=== PATIENT | female | born 1940 | race Caucasian/White ===

== ENCOUNTER → 2017-01-22 | Outpatient (CLI) | payer MEDICARE ==
[~2017-01-22] MED LIST: ACET-1757 PO; ALBU8.5H5 INH; CALC-260 PO; CITA20TA5 PO; CYCL1DRO EACHEYE; EPIN5DRO10 EACHEYE; FISH400C3 PO; FOLI1TAB5 PO; GLUC-32 PO; GLUC1500 PO; KRIL500C PO; LACT1CAP35 PO; LACT1CAP37 PO; LISI5TAB7 PO; LORA10TA62 PO; MAGN100T6 PO; MERC50TA17 PO; MESA400C PO; METH500C3 PO; METO25TA35 PO; OMEP40CA6 PO; PRED5TAB PO; RED600TA PO; SULF500T36 PO; TOPI50TA8 PO; VANC125C11 PO; VITAMIN B 12 PO
[2017-01-22 12:36] LABS: HEMATOCRIT 41.4 % (34.6-47.8); HEMOGLOBIN 13.5 g/dL (11.7-16.4)
[2017-01-22 12:53] LABS: ASPARTATE AMINO TRANSFERASE 20 U/L (15-37); BLOOD UREA NITROGEN 22 mg/dL (7-18)
== END | disposition home or self-care (01) ==
LOC: STAR 11:53
PROVIDERS: ATTEND Surgery
DX: Z01.818 Encounter for other preprocedural examination (principal)
CPT/HCPCS: 36415; 80053; 85025; 93005

== ENCOUNTER 2017-02-05 06:15 | Inpatient (IN) | payer MEDICARE ==
[~2017-02-05] VITALS: Ht 160 cm; Wt 67.0 kg
[2017-02-05] MEDS ORDERED: BUPIVACAINE/PF 0.5% ONE (07:02)
[2017-02-05 07:03] VITALS: BP 120/79
[2017-02-05] MEDS ORDERED: LACTATED RINGERS 1,000 ML IV SCH (07:09)
[2017-02-05] MEDS ORDERED: cloniDINE/PF 100 MCG/ML, 10 ML ONE (07:18)
[2017-02-05] MEDS ORDERED: LIDOCAINE 1%, 2ML SQ PRN (07:30)
[2017-02-05] MEDS ORDERED: GLYCOPYRROLATE 0.2MG/1ML, 5ML ONE (07:59)
[2017-02-05] MEDS ORDERED: ROCURONIUM 10 MG/ML ONE (07:59)
[2017-02-05] MEDS ORDERED: NEOSTIGMINE 1 MG/ML, 10ML ONE (07:59)
[2017-02-05] MEDS ORDERED: SUCCINYLCHOLINE 20 MG/ML, 10ML ONE (07:59)
[2017-02-05] MEDS ORDERED: PHENYLEPHRINE 10 MG/ML ONE (07:59)
[2017-02-05] MEDS ORDERED: PROPOFOL 10 MG/ML, 20ML ONE (07:59)
[2017-02-05] MEDS ORDERED: DEXAMETHASONE 4 MG/ML, 1ML ONE (07:59)
[2017-02-05] MEDS ORDERED: CEFOTETAN PMX 2GM/50ML 50 ML IVPB ONE (07:59)
[2017-02-05] MEDS ORDERED: ONDANSETRON 2MG/ML, 2ML ONE ×2 (07:59→09:22)
[2017-02-05] MEDS ORDERED: MIDAZOLAM 1 MG/ML, 2ML IV PRN (08:30)
[2017-02-05] MEDS ORDERED: hydrALAzine 20 MG/ML, 1ML IV PRN (08:30)
[2017-02-05] MEDS ORDERED: LABETALOL 5MG/ML, 20ML IV PRN (08:30)
[2017-02-05] MEDS ORDERED: ACETAMINOPHEN 325 MG TABLET PO PRN (08:30)
[2017-02-05] MEDS ORDERED: ONDANSETRON 2MG/ML, 2ML IVPush PRN (08:30)
[2017-02-05] MEDS ORDERED: OXYcodone 5 MG/5 ML ORAL.SOL UDC PO PRN (08:30)
[2017-02-05] MEDS ORDERED: PROMETHAZINE 25 MG/ML, 1ML IV PRN (08:30)
[2017-02-05] MEDS ORDERED: OXYcodone 5 MG/5 ML ORAL.SOL UDC ONE (09:18)
[2017-02-05] MEDS ORDERED: FENTANYL PF 100 MCG/2ML ONE (09:18)
[2017-02-05] MEDS: FENTANYL PF 100 MCG/2ML IV PRN ×2 (09:21→09:30)
[2017-02-05] MEDS ORDERED: HYDROmorphone 1 MG/ML, 1ML ONE (09:38)
[2017-02-05] MEDS: HYDROmorphone 1 MG/ML, 1ML IV PRN ×2 (09:39→10:00)
[2017-02-05] MEDS ORDERED: LORazepam 2 MG/ML, 1ML IV PRN (11:30)
[2017-02-05] MEDS ORDERED: DIPHENHYDRAMINE 50 MG/ML, 1ML IV PRN (11:30)
[2017-02-05] MEDS ORDERED: ONDANSETRON 2MG/ML, 2ML IV PRN (11:30)
[2017-02-05] MEDS ORDERED: LORazepam 1MG TABLET PO PRN (11:30)
[2017-02-05] MEDS ORDERED: HYDROmorphone 1 MG/ML, 1ML IV PRN (11:30)
[2017-02-05] MEDS ORDERED: DIPHENHYDRAMINE 25 MG CAPSULE PO PRN (11:30)
[2017-02-05] MEDS: POTASSIUM CHLORIDE 20 MEQ in D5%-0.45% NACL 1,000 ML IV SCH (11:37)
[2017-02-05] MEDS: ACETAMINOPHEN 500 MG TABLET PO SCH ×3 (12:33→23:25)
[2017-02-05 14:08] VITALS: BP 106/58
[2017-02-05] MEDS: OXYcodone 5 MG/5 ML ORAL.SOL UDC PO PRN ×3 (14:33→23:20)
[2017-02-05] MEDS: IBUPROFEN 600 MG TABLET PO SCH ×2 (15:58→20:55)
[2017-02-05 18:36] VITALS: BP 114/71
[2017-02-05] MEDS: RESTASIS OPTH OP SCH (20:43)
[2017-02-05] MEDS: EPINASTINE OP SCH (20:43)
[2017-02-05] MEDS: SULFASALAZINE 500 MG TABLET PO SCH (21:28)
[2017-02-05 23:14] VITALS: BP 119/72
[2017-02-06 03:46] VITALS: BP 149/72
[2017-02-06 03:47] VITALS: BP 120/70
[2017-02-06 05:08] LABS: HEMATOCRIT 34.5 % (34.6-47.8); HEMOGLOBIN 11.5 g/dL (11.7-16.4); WHITE BLOOD COUNT 8.3 x10^3/uL (3.4-10)
[2017-02-06 05:17] LABS: BLOOD UREA NITROGEN 12 mg/dL (7-18)
[2017-02-06] MEDS ORDERED: FLU VACC QS2017-18 (36MOS+) UP/PF 0.5 ML IM-VACC ONE (06:00)
[2017-02-06] MEDS ORDERED: ENOXAPARIN 40 MG/0.4 ML SQ SCH (06:00)
[2017-02-06] MEDS: ENOXAPARIN 40 MG/0.4 ML SQ SCH (06:07)
[2017-02-06] MEDS: ACETAMINOPHEN 500 MG TABLET PO SCH ×3 (06:07→17:31)
[2017-02-06 07:12] VITALS: BP 109/71
[2017-02-06] MEDS ORDERED: OMEPRAZOLE 20 MG CAPSULE.DR PO SCH (07:30)
[2017-02-06] MEDS: METOCLOPRAMIDE 5 MG/ML, 2ML IVPush SCH ×3 (08:21→20:06)
[2017-02-06] MEDS: EPINASTINE OP SCH ×2 (08:22→20:07)
[2017-02-06] MEDS: OMEPRAZOLE 20 MG CAPSULE.DR PO SCH (08:22)
[2017-02-06] MEDS: RESTASIS OPTH OP SCH ×2 (08:22→20:07)
[2017-02-06] MEDS: POTASSIUM CHLORIDE 20 MEQ in D5%-0.45% NACL 1,000 ML IV SCH (08:22)
[2017-02-06] MEDS: CITALOPRAM 10 MG TABLET PO SCH (08:24)
[2017-02-06] MEDS: LORATADINE 10 MG TABLET PO SCH (08:24)
[2017-02-06] MEDS: SULFASALAZINE 500 MG TABLET PO SCH ×2 (08:24→20:06)
[2017-02-06] MEDS: METOPROLOL TARTRATE 25 MG TABLET PO SCH (08:25)
[2017-02-06] MEDS: IBUPROFEN 600 MG TABLET PO SCH ×3 (08:26→20:06)
[2017-02-06] MEDS: OXYcodone 5 MG/5 ML ORAL.SOL UDC PO PRN ×3 (11:54→22:17)
[2017-02-06 13:57] VITALS: BP 85/51
[2017-02-06 18:33] VITALS: BP 96/65
[2017-02-07] MEDS: ACETAMINOPHEN 500 MG TABLET PO SCH ×4 (00:12→19:30)
[2017-02-07 00:27] VITALS: BP 100/65
[2017-02-07] MEDS: METOCLOPRAMIDE 5 MG/ML, 2ML IVPush SCH ×3 (01:50→13:30)
[2017-02-07] MEDS: POTASSIUM CHLORIDE 20 MEQ in D5%-0.45% NACL 1,000 ML IV SCH (03:54)
[2017-02-07 05:18] LABS: HEMATOCRIT 30.8 % (34.6-47.8); HEMOGLOBIN 10.4 g/dL (11.7-16.4); WHITE BLOOD COUNT 7.4 x10^3/uL (3.4-10)
[2017-02-07 05:25] LABS: BLOOD UREA NITROGEN 19 mg/dL (7-18)
[2017-02-07] MEDS: ENOXAPARIN 40 MG/0.4 ML SQ SCH (06:37)
[2017-02-07 07:05] VITALS: BP 94/54
[2017-02-07] MEDS: EPINASTINE OP SCH ×2 (09:00→21:00)
[2017-02-07] MEDS: RESTASIS OPTH OP SCH ×2 (09:00→21:00)
[2017-02-07] MEDS: METOPROLOL TARTRATE 25 MG TABLET PO SCH (09:00)
[2017-02-07] MEDS ORDERED: SODIUM CHLORIDE 0.9% 500 ML IV SCH (10:00)
[2017-02-07] MEDS: CITALOPRAM 10 MG TABLET PO SCH (10:51)
[2017-02-07] MEDS: LORATADINE 10 MG TABLET PO SCH (10:51)
[2017-02-07] MEDS: SULFASALAZINE 500 MG TABLET PO SCH ×2 (10:51→22:06)
[2017-02-07] MEDS: OMEPRAZOLE 20 MG CAPSULE.DR PO SCH (10:51)
[2017-02-07] MEDS: IBUPROFEN 600 MG TABLET PO SCH ×3 (10:54→21:00)
[2017-02-07 12:20] VITALS: BP 94/60
[2017-02-07 15:10] LABS: HEMATOCRIT 29.3 % (34.6-47.8); HEMOGLOBIN 9.6 g/dL (11.7-16.4)
[2017-02-07 19:27] VITALS: BP 105/66
[2017-02-08] MEDS: POTASSIUM CHLORIDE 20 MEQ in D5%-0.45% NACL 1,000 ML IV SCH (00:06)
[2017-02-08] MEDS: ACETAMINOPHEN 500 MG TABLET PO SCH ×3 (00:19→12:45)
[2017-02-08 02:31] VITALS: BP 101/59
[2017-02-08 05:49] LABS: HEMATOCRIT 27.2 % (34.6-47.8); WHITE BLOOD COUNT 5.3 x10^3/uL (3.4-10)
[2017-02-08 05:56] LABS: BLOOD UREA NITROGEN 18 mg/dL (7-18)
[2017-02-08 07:43] VITALS: BP 124/85
[2017-02-08] MEDS: OMEPRAZOLE 20 MG CAPSULE.DR PO SCH (07:51)
[2017-02-08] MEDS: EPINASTINE OP SCH (09:00)
[2017-02-08] MEDS: RESTASIS OPTH OP SCH (09:00)
[2017-02-08] MEDS: IBUPROFEN 600 MG TABLET PO SCH (09:51)
[2017-02-08] MEDS: METOPROLOL TARTRATE 25 MG TABLET PO SCH (09:52)
[2017-02-08] MEDS: SULFASALAZINE 500 MG TABLET PO SCH (09:53)
[2017-02-08] MEDS: LORATADINE 10 MG TABLET PO SCH (09:53)
[2017-02-08] MEDS: CITALOPRAM 10 MG TABLET PO SCH (09:53)
[2017-02-08] MEDS ORDERED: HYDR-3237 PO (14:24)
[2017-02-08] MEDS ORDERED: ONDA4TAB7 PO (14:25)
[2017-02-08] MEDS ORDERED: DOCU-131 PO (14:25)
[2017-02-08 14:32] VITALS: BP 107/61
== END 2017-02-08 15:40 | disposition home or self-care (01) | DRG 330 ==
LOC: ORIP 06:15 → 4NOR 10:27
PROVIDERS: ADMIT Surgery; ATTEND Surgery
PROC: 0DTF4ZZ Resection of Right Large Intestine, Percutaneous Endoscopic Approach (ICD-10-PCS; principal; 2017-02-05 07:30)
DX: C18.2 Malignant neoplasm of ascending colon (principal); K51.90 Ulcerative colitis, unspecified, without complications; K92.1 Melena; Z88.0 Allergy status to penicillin
CPT/HCPCS: 36415; 80048; 82040; 85014; 85018; 85025; 86850; 86900; 88309; 90686; J1100; J1170; J1650; J2405; J2704; J2710; J3010; J3480; J3490; J0330; J0735; J2370; J2765; J7040; J7120; S0074

== ENCOUNTER → 2017-02-25 | Outpatient (CLI) | payer MEDICARE ==
[~2017-02-25] MED LIST changes: +DOCU-131 PO; +HYDR-3237 PO; +OMNIPAQUE 350 MG/ML, 100ML BOTTLE ONE; +ONDA4TAB7 PO
== END | disposition home or self-care (01) ==
LOC: RAD 13:45
PROVIDERS: ATTEND Surgery
DX: C18.9 Malignant neoplasm of colon, unspecified (principal); K57.30 Diverticulosis of large intestine without perforation or abscess without bleeding; R16.0 Hepatomegaly, not elsewhere classified; R91.8 Other nonspecific abnormal finding of lung field
CPT/HCPCS: 71260; 74177; Q9967

== ENCOUNTER → 2017-03-18 | Outpatient (CLI) | payer MEDICARE ==
[~2017-03-18] MED LIST changes: -OMNIPAQUE 350 MG/ML, 100ML BOTTLE ONE
== END | disposition home or self-care (01) ==
LOC: PETCFH 07:25
PROVIDERS: ATTEND Internal Medicine Hematology & Oncology
DX: C18.2 Malignant neoplasm of ascending colon (principal); K57.30 Diverticulosis of large intestine without perforation or abscess without bleeding; Z98.890 Other specified postprocedural states
CPT/HCPCS: 78815; A9552

== ENCOUNTER → 2017-09-24 | Outpatient (CLI) | payer MEDICARE ==
[~2017-09-24] MED LIST changes: -GLUC1500 PO; +GLUC15006 PO; +OMNIPAQUE 350 MG/ML, 100ML BOTTLE ONE
== END | disposition home or self-care (01) ==
LOC: CFH 11:25
PROVIDERS: ATTEND Internal Medicine Hematology & Oncology
DX: C18.2 Malignant neoplasm of ascending colon (principal); R16.0 Hepatomegaly, not elsewhere classified
CPT/HCPCS: 71260; 74177; Q9967

== ENCOUNTER → 2018-01-01 | Outpatient (CLI) | payer MEDICARE ==
[~2018-01-01] MED LIST changes: -CITA20TA5 PO; +CITA20TA6 PO
== END | disposition home or self-care (01) ==
LOC: CFH 10:47
PROVIDERS: ATTEND Internal Medicine Hematology & Oncology
DX: K76.89 Other specified diseases of liver (principal); C18.2 Malignant neoplasm of ascending colon; Z88.1 Allergy status to other antibiotic agents; Z87.891 Personal history of nicotine dependence
CPT/HCPCS: 71260; 74177; Q9967

== ENCOUNTER 2018-02-18 10:59 | Day surgery (SDC) | payer MEDICARE ==
[~2018-02-18] VITALS: Ht 160 cm; Wt 76.1 kg
[~2018-02-18 10:59] MED LIST changes: -OMNIPAQUE 350 MG/ML, 100ML BOTTLE ONE
[2018-02-18] MEDS ORDERED: SODIUM CHLORIDE 0.9% 1,000 ML IV SCH (11:35)
[2018-02-18] MEDS ORDERED: PLEASE ENTER HEIGHT AND WEIGHT MC SCH (12:00)
[2018-02-18 12:04] VITALS: BP 120/63
[2018-02-18] MEDS ORDERED: LIDOCAINE-MPF 1%, 5ML ONE (12:32)
== END 2018-02-18 17:30 | disposition home or self-care (01) ==
LOC: OUT 10:59
PROVIDERS: ATTEND Orthopaedic Surgery
DX: M48.061 Spinal stenosis, lumbar region without neurogenic claudication (principal); I48.91 Unspecified atrial fibrillation; Z85.038 Personal history of other malignant neoplasm of large intestine; Z88.8 Allergy status to other drugs, medicaments and biological substances
CPT/HCPCS: 62284; 72110; 72132; J7030; Q9965

== ENCOUNTER 2018-06-28 11:03 | Outpatient (CLI) | payer MEDICARE ==
[~2018-06-28 11:03] MED LIST changes: +AMIO200T42 PO
[2018-06-28] MEDS ORDERED: OMNIPAQUE 350 MG/ML, 100ML BOTTLE ONE (14:50)
== END 2018-06-28 23:59 | disposition home or self-care (01) ==
LOC: CFH 11:03
PROVIDERS: ATTEND Internal Medicine Hematology & Oncology
DX: K76.9 Liver disease, unspecified (principal); K57.90 Diverticulosis of intestine, part unspecified, without perforation or abscess without bleeding; C18.2 Malignant neoplasm of ascending colon; M47.9 Spondylosis, unspecified
CPT/HCPCS: 71260; 74177; Q9967

== ENCOUNTER → 2018-08-13 | Outpatient (CLI) | payer MEDICARE | END | disposition home or self-care (01) | LOC: CFH 09:43 | PROVIDERS: ATTEND Nurse Practitioner Family | DX: M85.88 Other specified disorders of bone density and structure, other site (principal); N95.1 Menopausal and female climacteric states | CPT/HCPCS: 77080 ==

== ENCOUNTER → 2018-09-03 | Outpatient (CLI) | payer MEDICARE | END | disposition home or self-care (01) | LOC: RAD 10:54 | PROVIDERS: ATTEND Genetic Counselor, MS | DX: G44.89 Other headache syndrome (principal) | CPT/HCPCS: 70450 ==

== ENCOUNTER → 2018-09-22 | Outpatient (CLI) | payer MEDICARE ==
[~2018-09-22] MED LIST changes: +OMNIPAQUE 350 MG/ML, 100ML BOTTLE ONE
== END | disposition home or self-care (01) ==
LOC: CFH 11:57
PROVIDERS: ATTEND Internal Medicine Hematology & Oncology
DX: C18.2 Malignant neoplasm of ascending colon (principal); K57.30 Diverticulosis of large intestine without perforation or abscess without bleeding; M89.9 Disorder of bone, unspecified
CPT/HCPCS: 70460; 78815; A9552; Q9967

== ENCOUNTER 2018-10-26 08:13 | Outpatient (CLI) | payer MEDICARE ==
[~2018-10-26 08:13] MED LIST changes: -OMNIPAQUE 350 MG/ML, 100ML BOTTLE ONE
== END 2018-10-26 23:59 | disposition home or self-care (01) ==
LOC: ROC 08:13
PROVIDERS: ATTEND Radiology Radiation Oncology
DX: C18.2 Malignant neoplasm of ascending colon (principal)
CPT/HCPCS: G0463